=== PATIENT | male | born 1980 | race Caucasian/White ===

== ENCOUNTER 2021-01-30 19:04 | Observation (INO) | payer OTHER ==
[~2021-01-30] VITALS: Ht 205.7 cm; Wt 113.4 kg
[2021-01-30 19:41] LABS: RED BLOOD COUNT 5.29 M/UL (4.20-5.50); WHITE BLOOD COUNT 7.2 K/UL (4.5-11.0)
[2021-01-30 20:02] LABS: BUN/CREATININE RATIO 14 (0-10)
[2021-01-30] MEDS ORDERED: GABAPENTIN600 MG PO (22:27)
[2021-01-30] MEDS ORDERED: LISINOPRIL20 MG PO (22:27)
[2021-01-30] MEDS ORDERED: LEVOTHYROXINE25 MCG PO (22:28)
[2021-01-30] MEDS ORDERED: VIAGRA100 MG PO (22:28)
[2021-01-31 04:11] LABS: HEMOGLOBIN 13.5 gm/dl (14.0-17.5); RED BLOOD COUNT 4.85 M/UL (4.20-5.50); WHITE BLOOD COUNT 7.2 K/UL (4.5-11.0)
[2021-01-31 04:36] LABS: BUN/CREATININE RATIO 14 (0-10)
--- NOTE | 2021-01-31 18:30 | NUR ---
DR GARCIA INITIATED TRANSFER TO [facility] FOR [facility]HER LEVEL CARE. PATIENT AND SIGNIFICANT OTHER MADE AWARE OF THE TRANSFER AND ARE AGREEABLE TO IT.
--- NOTE | 2021-01-31 18:51 | NUR ---
ATTEMPTED TO CALL REPORT TO [facility] AT [phone], REPORT WAS REFUSED DUE TO SHIFT CHANGE AND THEY TOLD US TO CALL BACK AT 1920.
--- NOTE | 2021-01-31 19:00 | NUR ---
Spoke with patient about his transfer to [facility]. Patient stated that he would go to [facility] if his was also able to go but she did not have a ride up there. I told patient that his could not ride in the ambulance with him but I could see if I could possibly get a cab arranged. I spoke to Route Service Representative Adeline and she stated that it was too far for her to get a cab arranged and paid for. I informed the patient that we were not able to provide his a ride to [facility] and patient refused the transfer. I educated patient on the need to transfer, but patient still refused.
[2021-01-31] MEDS ORDERED: ASPIRIN CHEWABL81 MG PO (19:10)
--- NOTE | 2021-01-31 22:19 | NUR ---
PRIMARY RN MADE TV NEWS DIRECTOR AWARE THAT PT WAS WANTING TO LEAVE AMA. TV NEWS DIRECTOR SPOKE TO PT AND PT SIGNIFICANT OTHER. PT AND SIGNIFICANT OTHER BEGAN TO ARGUE ABOUT PT WANTING TO LEAVE "TO TAKE CARE OF SOME BUSINESS." PT WAS MADE AWARE THAT HIS BLOOD PRESSURE WAS STILL VERY HIGH AT 169/120 AND HE WAS AT A SIGNIFICANT RISK FOR HAVING A STROKE. PT WAS EDUCATED ON STROKE RISK, RISK OF , AND THAT THE HOSPITAL WOULD NOT BE RESPONSIBLE FOR ANYHTHING THAT HAPPENS TO PT ONCE HE DECIDED TO LEAVE AMA. PT THEN AGREED TO STAY AND IS WILLING TO BE TRANSFERRED TO [facility] FOR FURTHER EVAL AND TREATMENT. SCUTCHER TENDER MADE AWARE OF SITUATION. PRAVEEN
[2021-02-01 03:07] LABS: HEMOGLOBIN 13.6 gm/dl (14.0-17.5); RED BLOOD COUNT 4.87 M/UL (4.20-5.50); WHITE BLOOD COUNT 6.2 K/UL (4.5-11.0)
[2021-02-01 03:42] LABS: BUN/CREATININE RATIO 14 (0-10)
--- NOTE | 2021-02-01 09:01 | NUR ---
SPOKE WITH PATIENT AND HIS SIGNIFICANT OTHER THIS MORNING, THEY WANTED TO SPEAK TO A CUSTOMS OPENER VERIFIER PACKER ABOUT GETTING A RIDE FOR HER TO [place] SO SHE COULD BE WITH HIM WHILE HE IS AT THE HOSPITAL. PUT IN CUSTOMS OPENER VERIFIER PACKER CONSULT. SPOKE WITH MD RELATED TO CONTINUED HYPERTENSION, PATIENT GIVEN PRN MEDICATION ORDERED ALONG WITH REGULAR MORNING MEDICATION. DR GARCIA AND I SPOKE WITH THE PATIENT AND HIS SIGNIFICANT OTHER AT LENGTH REGARDING THE URGENCY AND NEED FOR HIS TRANSFER TO A FACILITY THAT CAN PROVIDE A HIGHER LEVEL OF CARE. MD EXPLAINED THAT HIS SITUATION IS DANGEROUS, AND SHE WAS GOING TO INITIATE THE TRANSFER AGAIN THIS MORNING LONG HE WOULD AGREE TO GO. THE PATIENT AGREED, AND THE MD IS CURRENTLY WORKING ON TRANSFERRING THE PATIENT TO A FACILITY WITH A HIGHER LEVEL OF CARE. PATIENT'S SIGNIFICANT OTHER BECAME UPSET, STATING THAT SHE DIDN'T KNOW HE WAS "THIS BAD" AND "NOBODY TOLD ME HE HAD A BED IN [place]". MD EXPLAINED TO HER THAT SHE SPOKE WITH THEM YESTERDAY REGARDING THE NEED FOR TRANSFER, AND I EXPLAINED TO THEM THAT I CAME IN YESTERDAY PRIOR TO LEAVING FOR MY SHIFT TO LET THEM KNOW THAT HE WAS GOING TO BE TRANSFERRED TO [place]. THE PATIENT'S SIGNIFICANT OTHER BECAME VERY UPSET AND WAS CURSING AND YELLING IN THE [place]. ATTEMPTS WERE MADE TO CALM HER AND DEESCALATE THE SITUATION. SHE EVENTUALLY STEPPED OUTSIDE TO TAKE A BREAK AND CALM DOWN WITHOUT FURTHER ISSUE. SHE AND PATIENT BOTH NOW STATE THAT THEY UNDERSTAND THE NEED FOR THE PATIENT TO TRANSFER AND ARE AGREEABLE TO THE TRANSFER.
[2021-02-03 10:11] LABS: HBSAG SCREEN Negative (Negative); HEP A AB, IGM Negative (Negative); HEP B CORE AB, IGM Negative (Negative); HEP C VIRUS AB <0.1 (0.0-0.9)
== END 2021-02-01 11:28 | disposition other institution (70) ==
LOC: ER1 19:04 → CDU 20:42 → M/S 20:42
PROVIDERS: Emergency Medicine; Internal Medicine; ADMIT Internal Medicine
DX: R29.810 Facial weakness (principal); R20.0 Anesthesia of skin; R79.89 Other specified abnormal findings of blood chemistry; J43.9 Emphysema, unspecified; I16.0 Hypertensive urgency; I16.1 Hypertensive emergency; I10 Essential (primary) hypertension; E03.9 Hypothyroidism, unspecified; F17.200 Nicotine dependence, unspecified, uncomplicated; Z20.822 Contact with and (suspected) exposure to COVID-19
CPT/HCPCS: 36415; 70450; 70551; 71045; 80048; 80053; 80061; 80074; 80307; 81001; 82550; 82553; 83735; 83874; 84439; 84443; 84484; 85025; 85027; 85610; 85730; 86140; 86701; 86702; 87040; 93005; 99285; G0378; J0360; J1650; J3411; Q9967; U0002